=== PATIENT | male | born 1985 | race Caucasian/White ===

== ENCOUNTER 2018-05-03 22:14 | Emergency (ER) | payer BC ==
[~2018-05-03] VITALS: Ht 177.8 cm; Wt 70.5 kg
[2018-05-03] MEDS ORDERED: CENTCHW4 PO (22:24)
[2018-05-03] MEDS ORDERED: FISH7.5C PO (22:24)
[2018-05-03 23:11] LABS: BASO % 0.3 % (0.0-1.0); EOS # 0.1 10^3/uL (0.0-0.50); HEMATOCRIT 46.6 % (42.0-52.0); HEMOGLOBIN 15.8 g/dl (13.5-17.5); LYMPH # 1.1 10^3/uL (1.5-4.5); LYMPH % 9.6 % (24.0-44.0); MEAN CORPUSCULAR HEMOGLOBIN 29.9 pg (27.0-33.0); MEAN CORPUSCULAR HGB CONC 33.9 g/dl (32.0-36.5); MEAN CORPUSCULAR VOLUME 88.1 fl (80.0-96.0); MONO # 0.7 10^3/uL (0.0-0.8); MONO % 6.5 % (0.0-5.0); NEUTROPHILS % 82.3 % (36.0-66.0); PLATELET COUNT, AUTOMATED 251 10^3/uL (150-450); RED BLOOD COUNT 5.29 10^6/uL (4.30-6.10)
[2018-05-03 23:21] LABS: INR 1.04; PROTHROMBIN TIME 13.7 SECONDS (12.1-14.4)
[2018-05-03 23:24] LABS: D-DIMER QUANT 343.73 ng/ml (<500)
[2018-05-03 23:38] LABS: ALT/SGPT 31 U/L (12-78); BILIRUBIN,DIRECT < 0.1 MG/DL (0.0-0.2); BILIRUBIN,TOTAL 0.3 MG/DL (0.2-1.0); BLOOD UREA NITROGEN 18 MG/DL (7-18); CALCIUM LEVEL 8.6 MG/DL (8.5-10.1); CARBON DIOXIDE LEVEL 28 MEQ/L (21-32); CHLORIDE LEVEL 106 MEQ/L (98-107); CPK CREATINE PHOSPHOKINASE 123 U/L (39-308); GLOMERULAR FILTRATION RATE > 60.0 (>60); GLUCOSE, FASTING 127 MG/DL (70-100); MB/CK RELATIVE INDEX 0.98 (< OR =4); POTASSIUM SERUM 3.8 MEQ/L (3.5-5.1); SODIUM LEVEL 140 MEQ/L (136-145); TOTAL PROTEIN 7.2 GM/DL (6.4-8.2); TROPONIN I < 0.02 NG/ML (< 0.10)
[2018-05-03] MEDS ORDERED: IBUP-1022 PO (23:42)
[2018-05-03] MEDS ORDERED: TESS100C PO (23:42)
[2018-05-03] MEDS ORDERED: ALBUTEROL 90 MCG/ACT 8GM HFA INHALER INH ONE (23:45)
[2018-05-03 23:48] VITALS: BP 125/65
--- NOTE | 2018-05-04 07:58 | REP ---
Chest x-ray: Two views. History: Dyspnea and cough. . Comparison study: No comparison study . Findings: The lungs are well inflated and free of infiltrate. The pleural angles are sharp. The heart size is normal. Pulmonary vasculature is not increased. No significant bony abnormality is seen. Impression: Negative chest x-ray. Electronically Signed by Colin Crawley MD 05/04/2018 07:49 A
--- NOTE | 2018-05-04 11:24 | ECGEPIP ---
Stationary ECG Study [facility] - ED Test Date: 2018-05-03 Pat Name: ROBERTO AMIN Department: Room: - Gender: M Design Intern: : [id number] Requested By: MARCI HAMLIN Order Number: [id number] Reading MD: Michael Guzmán Measurements Intervals [place] Rate: 74 P: 75 WV: 179 QRS: 77 QRSD: 101 T: 62 QT: 357 QTc: 397 Interpretive Statements SINUS RHYTHM WITH SINUS ARRHYTHMIA BENIGN EARLY REPOLARIZATION NO PRIORS FOR COMPARISON Electronically Signed On 05-04-2018 11:23:59 EST by Michael Guzmán
== END 2018-05-03 23:49 | disposition home or self-care (01) ==
LOC: M ED 22:14
DX: J40 Bronchitis, not specified as acute or chronic (principal); J06.9 Acute upper respiratory infection, unspecified; R09.1 Pleurisy; R07.89 Other chest pain